=== PATIENT | female | born 1995 | race African-American/Black ===

== ENCOUNTER 2018-01-28 03:45 | Emergency (ER) | payer OTHER ==
[~2018-01-28 03:45] MED LIST: ALBUTEROL2.5 MG/3 M INH/SOL; FLUTICASONE PRO16 GM NASB; IBUPROFEN600 M1 PO; LIDOCAINE1 EACH; LORATADINE10 M1 PO; MONTELUKAST SOD10 M1 PO; NAPROSYN500 M1 PO; PROAIR HFA8.5 GM INH; ROBAXIN500 M1 PO
== END 2018-01-28 04:44 | disposition admitted as inpatient to this hospital (09) ==
LOC: ERH 03:45
DX: R10.9 Unspecified abdominal pain (principal)